=== PATIENT | female | born 1970 | race Native Hawaiian/Other Pacific Islander ===

== ENCOUNTER 2017-03-07 08:33 | Outpatient (CLI) | payer BC | END 2017-03-07 19:10 | disposition home or self-care (01) | LOC: MAMMO 08:33 | DX: Z12.31 Encounter for screening mammogram for malignant neoplasm of breast (principal) ==

== ENCOUNTER 2018-03-13 08:34 | Outpatient (CLI) | payer BC | END 2018-03-13 19:29 | disposition home or self-care (01) | LOC: MAMMO 08:34 | DX: Z12.31 Encounter for screening mammogram for malignant neoplasm of breast (principal) ==

== ENCOUNTER 2022-02-05 14:02 | Outpatient (CLI) | payer BC ==
[~2022-02-05] VITALS: Ht 160 cm; Wt 57.6 kg
[2022-02-05 14:09] VITALS: BP 124/77; TEMP 98.8
[2022-02-05 16:00] VITALS: BP 121/82; TEMP 98.8
== END 2022-02-05 19:06 | disposition home or self-care (01) ==
LOC: INF 14:02
PROVIDERS: ATTEND Internal Medicine
DX: G35 Multiple sclerosis (principal)
CPT/HCPCS: 96365; J2920

== ENCOUNTER 2022-02-06 07:55 | Outpatient (CLI) | payer BC ==
[~2022-02-06] VITALS: Ht 160 cm; Wt 57.6 kg
[2022-02-06 08:20] VITALS: BP 128/74; TEMP 99
--- NOTE | 2022-02-06 09:41 | NUR ---
0819 PT AMBULATED TO ROOM 1128 FOR OP INFUSION. VS OBTAINED. 22G PIV TO LFA FLUSHED WITH 10 ML NS SITE WNL PT DENIES ANY COMPLAINTS AT THIS TIME. 0855 INFUSION STARTED AT THIS TIME. 0910 PT TOLERATING INFUSION WITH NO ADVERSE REACTION SUSPECTED. 0931 INFUSION COMPLETED ATTHIS TIME. PT TOELRATED WITH NO COMPLAINTS NO ADVERSE REACTIONS SUSPECTED. PIV FLUSHED WITH 10 ML NS CAPPED WITH CUROS. 0951 PT AMBULATED FROM [place] ROOM AT THIS TIME IN NO DISTRESS. PT TO RETURN TOMORROW AT 0800 [facility]PR SCHEDULED INFUSION.
[2022-02-06 09:44] VITALS: BP 131/68; TEMP 98
== END 2022-02-06 19:29 | disposition home or self-care (01) ==
LOC: INF 07:55
PROVIDERS: ATTEND Internal Medicine
DX: G35 Multiple sclerosis (principal)
CPT/HCPCS: 96365; J2920

== ENCOUNTER 2022-02-07 07:23 | Outpatient (CLI) | payer BC ==
[~2022-02-07] VITALS: Ht 160 cm; Wt 57.6 kg
[2022-02-07 08:39] VITALS: BP 104/74; TEMP 98.4
--- NOTE | 2022-02-07 08:39 | NUR ---
PT AMBULATED TO ROOM 1128 FOR OP INFUSION VS OBTAINED 22G PIV TO RFA FLUSHED WITH 10ML NS
--- NOTE | 2022-02-07 10:15 | NUR ---
INFUSION COMPLETED AT THIS TIME PT TOLERATED WITH NO ADVERSE REACTIONS. PIV FLUSHED WITH 10 ML NS CAPPED WITH CUROS.
[2022-02-07 10:34] VITALS: BP 109/76; TEMP 98.2
--- NOTE | 2022-02-07 10:35 | NUR ---
PT AMBULATED OUT OF [place] ROOM IN NO DISTRESS. PT TO RETURN TO [place] FOR SCHEDULED INFUSION.
== END 2022-02-07 19:27 | disposition home or self-care (01) ==
LOC: INF 07:23
PROVIDERS: ATTEND Internal Medicine
DX: G35 Multiple sclerosis (principal)
CPT/HCPCS: 96365; J2920

== ENCOUNTER 2022-02-08 07:45 | Outpatient (CLI) | payer BC ==
[~2022-02-08] VITALS: Ht 160 cm; Wt 57.6 kg
== END 2022-02-08 19:37 | disposition home or self-care (01) ==
LOC: INF 07:45
PROVIDERS: ATTEND Internal Medicine
DX: G35 Multiple sclerosis (principal)
CPT/HCPCS: 96365; J2920

== ENCOUNTER 2022-02-09 07:44 | Outpatient (CLI) | payer BC ==
[~2022-02-09] VITALS: Ht 160 cm; Wt 57.6 kg
[2022-02-09 07:55] VITALS: BP 131/76; TEMP 98.23
[2022-02-09 09:11] VITALS: BP 127/68; TEMP 98.3
== END 2022-02-09 20:29 | disposition home or self-care (01) ==
LOC: INF 07:44
PROVIDERS: ATTEND Internal Medicine
DX: G35 Multiple sclerosis (principal)
CPT/HCPCS: 96365; J2920